=== PATIENT | male | born 1975 | race Two or more races ===

== ENCOUNTER 2024-08-09 14:15 | Emergency (ER) | payer MEDICAID, OTHER ==
[~2024-08-09] VITALS: Ht 175.3 cm; Wt 97.7 kg
[~2024-08-09 14:15] MED LIST: LISI-894 PO; NIFE-129 PO
[2024-08-09] MEDS ORDERED: AMLO5TAB66 PO (15:44)
[2024-08-09] MEDS ORDERED: LOSA1TAB40 PO (15:44)
[2024-08-09] MEDS: AmLODIPine BESYLATE 5 MG TABLET PO ONE (15:49)
[2024-08-09 16:21] LABS: BASOPHILS % (AUTO) 0.6 % (0.0-2.0); EOSINOPHILS % (AUTO) 2.4 % (1.0-6.0); HEMATOCRIT 45.3 % (41-53); HEMOGLOBIN 15.8 g/dL (13.5-17.5); LYMPHOCYTES # (AUTO) 2.8 K/uL (1.0-4.8); LYMPHOCYTES % (AUTO) 27.6 % (22.0-44.0); MEAN CORPUSCULAR HEMOGLOBIN 31.1 pg (26.0-34.0); MEAN CORPUSCULAR HGB CONC 34.9 G/dL (31.0-37.0); MEAN CORPUSCULAR VOLUME 89 fL (80-100); MONOCYTES # (AUTO) 0.8 K/uL (0.1-1.0); MONOCYTES % (AUTO) 7.4 % (2.0-9.0); NEUTROPHILS # (AUTO) 6.4 K/uL (1.8-7.7); PLATELET COUNT (AUTO) 350 K/uL (150-450); RED BLOOD CELL COUNT(AUTO) 5.08 MIL/uL (4.50-5.90); RED CELL DISTRIBUTION WIDTH 13.5 % (11.5-14.5); WHITE BLOOD COUNT (AUTO) 10.3 K/uL (4.5-11.0)
[2024-08-09 16:25] LABS: ERYTHROCYTE SEDIMENTATION RATE 1 MM/HR (0-20)
[2024-08-09 16:30] LABS: ANION GAP 7 mmol/L (8-16); CALCIUM, TOTAL 8.3 mg/dL (8.8-10.5); CARBON DIOXIDE 32 mmol/L (22-29); CHLORIDE 101 mmol/L (98-107); CREATININE 0.95 mg/dL (0.60-1.30); GLOMERULAR FILTR. RATE CALC > 60 mL/min (>60); GLUCOSE,RANDOM 96 mg/dL (70-110); POTASSIUM 3.2 mmol/L (3.5-5.1); SODIUM SERUM 140 mmol/L (136-145); UREA NITROGEN, BLOOD 10 mg/dL (7-18)
[2024-08-09 16:31] LABS: PROTHROMBIN TIME 10.9 SEC (9.4-11.6)
[2024-08-09 16:40] LABS: ALANINE AMINOTRANSFERASE 26 U/L (12-78); ALBUMIN 3.6 g/dL (3.4-5.0); ALKALINE PHOSPHATASE 97 U/L (46-116); ASPARTATE AMINOTRANSFERASE 13 U/L (15-37); BILIRUBIN,TOTAL 0.8 mg/dL (0.1-1.0)
[2024-08-09 16:41] LABS: TROPONIN I-HIGH SENSITIVITY 6 ng/L (<76)
[2024-08-09] MEDS: POTASSIUM CHLORIDE 20 MEQ ER TABLET PO ONE (17:00)
[2024-08-09 20:12] VITALS: BP 157/102; PULSE 76; RESP 16; TEMP 98; O2SAT 97
== END 2024-08-09 20:19 | disposition home or self-care (01) ==
LOC: EMS 14:15
DX: I10 Essential (primary) hypertension (principal); R51.9 Headache, unspecified; F12.90 Cannabis use, unspecified, uncomplicated; Z79.899 Other long term (current) drug therapy
CPT/HCPCS: 70450; 80048; 80076; 84484; 85025; 85610; 85651; 93005; 99285

== ENCOUNTER 2024-12-29 00:08 | Inpatient (IN) | payer OTHER ==
[~2024-12-29] VITALS: Ht 177.8 cm; Wt 101.1 kg
[~2024-12-29 00:08] MED LIST changes: +AMLO5TAB66 PO; -LISI-894 PO; +LOSA1TAB40 PO; -NIFE-129 PO
[2024-12-29 00:42] LABS: BASOPHILS % (AUTO) 0.9 % (0.0-2.0); EOSINOPHILS % (AUTO) 2.7 % (1.0-6.0); HEMATOCRIT 43.4 % (41-53); HEMOGLOBIN 14.9 g/dL (13.5-17.5); LYMPHOCYTES # (AUTO) 3.4 K/uL (1.0-4.8); LYMPHOCYTES % (AUTO) 32.6 % (22.0-44.0); MEAN CORPUSCULAR HEMOGLOBIN 30.2 pg (26.0-34.0); MEAN CORPUSCULAR HGB CONC 34.2 G/dL (31.0-37.0); MEAN CORPUSCULAR VOLUME 88 fL (80-100); MONOCYTES # (AUTO) 0.8 K/uL (0.1-1.0); MONOCYTES % (AUTO) 7.8 % (2.0-9.0); NEUTROPHILS # (AUTO) 5.7 K/uL (1.8-7.7); PLATELET COUNT (AUTO) 306 K/uL (150-450); RED BLOOD CELL COUNT(AUTO) 4.92 MIL/uL (4.50-5.90); RED CELL DISTRIBUTION WIDTH 13.3 % (11.5-14.5); WHITE BLOOD COUNT (AUTO) 10.3 K/uL (4.5-11.0)
[2024-12-29 00:53] LABS: ANION GAP 8 mmol/L (8-16); CALCIUM, TOTAL 8.4 mg/dL (8.8-10.5); CARBON DIOXIDE 28 mmol/L (22-29); CHLORIDE 99 mmol/L (98-107); CREATININE 1.08 mg/dL (0.60-1.30); GLOMERULAR FILTR. RATE CALC > 60 mL/min (>60); GLUCOSE,RANDOM 188 mg/dL (70-110); POTASSIUM 3.2 mmol/L (3.5-5.1); SODIUM SERUM 135 mmol/L (136-145); UREA NITROGEN, BLOOD 17 mg/dL (7-18)
[2024-12-29 01:02] LABS: TROPONIN I-HIGH SENSITIVITY 8 ng/L (<76)
[2024-12-29] MEDS: SODIUM CHLORIDE 0.9% 1,000 ML IV ONE (01:13)
[2024-12-29] MEDS: CloNIDine HCL 0.2 MG TABLET PO ONE (01:21)
[2024-12-29] MEDS: ACETAMINOPHEN 500 MG TABLET PO ONE (01:26)
[2024-12-29] MEDS: HydrALAZINE HCL 20 MG/ML VIAL IVP ONE ×2 (02:09→05:17)
[2024-12-29 05:31] LABS: GLUCOMETER DEV NAME(LOC) ERT.7; GLUCOSE,POINT OF CARE 183 MG/DL (70-110)
[2024-12-29] MEDS: MORPHINE SULFATE 2 MG/ML SYRINGE IVP ONE (05:38)
[2024-12-29 07:04] LABS: APPEARANCE,URINE CLEAR (CLEAR); BILIRUBIN,URINE NEGATIVE (NEGATIVE); COLOR,URINE LIGHT YELLOW (YELLOW); GLUCOSE, URINE (UA) 300-500 mg/dL (NEGATIVE); KETONES,URINE NEGATIVE (NEGATIVE); LEUKOCYTE ESTERASE ,URINE NEGATIVE (NEGATIVE); NITRATE,URINE NEGATIVE (NEGATIVE); OCCULT BLOOD,URINE NEGATIVE (NEGATIVE); PROTEIN,URINE NEGATIVE (NEGATIVE); SPECIFIC GRAVITIY, URINE 1.011 (1.003-1.030); UROBILINOGEN,URINE <=1.0 mg/dL (<=1.0)
[2024-12-29 07:10] LABS: ALCOHOL, URINE DRUG SCREEN NEGATIVE (NEGATIVE); AMPHET/METH SCREEN,URINE NEGATIVE (NEGATIVE); BARBITURATE SCREEN, URINE NEGATIVE (NEGATIVE); BENZODIAZEPINES SCREEN,URINE NEGATIVE (NEGATIVE); CANNABINOID SCREEN,URINE POSITIVE (NEGATIVE); COCAINE SCREEN,URINE NEGATIVE (NEGATIVE); METHADONE SCREEN, URINE NEGATIVE (NEGATIVE); OPIATE SCREEN,URINE NEGATIVE (NEGATIVE); PHENCYCLIDINE SCREEN,URINE NEGATIVE (NEGATIVE)
[2024-12-29 07:14] LABS: BACTERIA,URINE None Seen /HPF (None Seen); RBC,URINE None Seen /HPF (0-2); WBC,URINE None Seen /HPF (0-5)
[2024-12-29] MEDS: LABETALOL HCL 5 MG/ML 20 ML VIAL IVP PRN (07:52)
[2024-12-29 08:30] VITALS: BP 143/98; PULSE 70; RESP 20; TEMP 98.2; O2SAT 95
[2024-12-29 11:23] VITALS: BP 157/106; PULSE 69; RESP 16; TEMP 97.7; O2SAT 99
[2024-12-29] MEDS ORDERED: SPIR50TA27 PO (14:51)
[2024-12-29] MEDS ORDERED: METO25TA3 PO (14:51)
[2024-12-29 15:28] VITALS: BP 147/99; PULSE 78; RESP 20; TEMP 97.7; O2SAT 98
[2024-12-29] MEDS: AmLODIPine BESYLATE 10 MG TABLET PO ONE (16:20)
[2024-12-29] MEDS: METOPROLOL SUCCINATE 50 MG ER TABLET PO ONE (16:20)
[2024-12-29] MEDS: SPIRONOLACTONE 50 MG TABLET PO ONE (16:20)
[2024-12-29] MEDS: ACETAMINOPHEN 325 MG TABLET PO PRN (16:20)
[2024-12-29 17:00] VITALS: BP 142/92; PULSE 72; RESP 18; TEMP 97.8; O2SAT 99
[2024-12-29] MEDS ORDERED: DEXTROSE 50%-WATER 25 GM/50 ML SYRINGE IVP PRN (18:00)
[2024-12-29] MEDS: POTASSIUM CHLORIDE 20 MEQ ER TABLET PO ONE (18:36)
[2024-12-29] MEDS: hydroCHLOROthiazide 25 MG TABLET PO ONE (18:36)
[2024-12-29] MEDS: LOSARTAN POTASSIUM 50 MG TABLET PO ONE (18:36)
[2024-12-29 20:15] VITALS: BP 145/89; PULSE 74; RESP 18; TEMP 97.9; O2SAT 98
[2024-12-30 00:46] VITALS: BP 143/96; PULSE 64; RESP 18; TEMP 98.4; O2SAT 97
[2024-12-30 05:27] VITALS: BP 143/113; PULSE 72; RESP 17; TEMP 98.4; O2SAT 97
[2024-12-30 07:15] LABS: ANION GAP 10 mmol/L (8-16); CALCIUM, TOTAL 8.9 mg/dL (8.8-10.5); CARBON DIOXIDE 27 mmol/L (22-29); CHLORIDE 100 mmol/L (98-107); CREATININE 0.98 mg/dL (0.60-1.30); GLOMERULAR FILTR. RATE CALC > 60 mL/min (>60); GLUCOSE,RANDOM 157 mg/dL (70-110); POTASSIUM 3.7 mmol/L (3.5-5.1); SODIUM SERUM 137 mmol/L (136-145); UREA NITROGEN, BLOOD 13 mg/dL (7-18)
[2024-12-30 07:44] VITALS: BP 136/92; PULSE 65; RESP 19; TEMP 97.7; O2SAT 98
[2024-12-30] MEDS: AmLODIPine BESYLATE 10 MG TABLET PO SCH (08:29)
[2024-12-30] MEDS: METOPROLOL SUCCINATE 50 MG ER TABLET PO SCH (08:29)
[2024-12-30] MEDS: hydroCHLOROthiazide 25 MG TABLET PO SCH (08:29)
[2024-12-30] MEDS: LOSARTAN POTASSIUM 50 MG TABLET PO SCH (08:29)
[2024-12-30] MEDS ORDERED: SPIRONOLACTONE 50 MG TABLET PO SCH (09:00)
[2024-12-30] MEDS: SPIRONOLACTONE 50 MG TABLET PO SCH (09:59)
[2024-12-30 11:15] VITALS: BP 139/99; PULSE 74; RESP 19; TEMP 98.1; O2SAT 98
[2024-12-30] MEDS: INSULIN LISPRO 100 UNITS/ML SQ PRN (11:28)
[2024-12-30 12:01] LABS: GLUCOMETER DEV NAME(LOC) 5N.2C; GLUCOSE,POINT OF CARE 200 MG/DL (70-110)
[2024-12-30 12:01] LABS: GLUCOMETER DEV NAME(LOC) 5N.2C; GLUCOSE,POINT OF CARE 268 MG/DL (70-110)
[2024-12-30 15:46] VITALS: BP 129/98; PULSE 78; RESP 20; TEMP 98; O2SAT 98
[2024-12-30] MEDS ORDERED: METO-391 PO (16:07)
[2024-12-30] MEDS ORDERED: LOSA1TAB40 PO (16:07)
[2024-12-30] MEDS ORDERED: SPIR50TA27 PO (16:07)
[2024-12-30] MEDS ORDERED: METF-1211 PO (16:07)
[2024-12-30] MEDS ORDERED: AMLO-258 PO (16:07)
[2024-12-30 17:26] LABS: GLUCOMETER DEV NAME(LOC) 5N.2C; GLUCOSE,POINT OF CARE 115 MG/DL (70-110)
== END 2024-12-30 17:50 | disposition home or self-care (01) | DRG 199 ==
LOC: EMS 01:55 → EDH 06:40 → 5S 08:30
PROVIDERS: ADMIT Hospitalist; ATTEND Hospitalist
DX: I16.0 Hypertensive urgency (principal); E87.6 Hypokalemia; R73.9 Hyperglycemia, unspecified; F12.90 Cannabis use, unspecified, uncomplicated; Z79.899 Other long term (current) drug therapy
CPT/HCPCS: 70450; 80048; 80307; 81001; 82962; 83036; 84484; 85025; 93005; 96361; 96374; 96375; 96376; 99285; G0378; J0360; J2270; J3490; J7030; 36415-L1; 36415-TC

== ENCOUNTER 2025-03-01 09:38 | Inpatient (IN) | payer OTHER ==
[2025-03-01] VITALS (10 sets, daily range): BP systolic 104–189; BP diastolic 83–150; PULSE 58–91; RESP 18; TEMP 98.1–98.4
[~2025-03-01] VITALS: Ht 175.3 cm; Wt 104.2 kg
[~2025-03-01 09:38] MED LIST changes: +AMLO-258 PO; -AMLO5TAB66 PO; +METF-1211 PO; +METO-391 PO; +SPIR50TA27 PO
[2025-03-01] MEDS ORDERED: AMLO-258 PO (09:55)
[2025-03-01 10:23] LABS: PLATELET COUNT (AUTO) 337 K/uL (150-450); RED BLOOD CELL COUNT(AUTO) 4.91 MIL/uL (4.50-5.90); RED CELL DISTRIBUTION WIDTH 13.7 % (11.5-14.5); WHITE BLOOD COUNT (AUTO) 8.1 K/uL (4.5-11.0)
[2025-03-01] MEDS: SODIUM CHLORIDE 0.9% 1,000 ML IV ONE (10:26)
[2025-03-01 10:30] LABS: CALCIUM, TOTAL 8.2 mg/dL (8.8-10.5); CREATININE 0.98 mg/dL (0.60-1.30); GLOMERULAR FILTR. RATE CALC > 60 mL/min (>60); GLUCOSE,RANDOM 123 mg/dL (70-110); SODIUM SERUM 143 mmol/L (136-145); UREA NITROGEN, BLOOD 11 mg/dL (7-18)
[2025-03-01 10:34] LABS: ASPARTATE AMINOTRANSFERASE 22 U/L (15-37); TOTAL PROTEIN, SERUM 7.0 g/dL (6.4-8.2)
[2025-03-01 10:39] LABS: TROPONIN I-HIGH SENSITIVITY 8 ng/L (<76)
[2025-03-01 11:20] LABS: GLUCOMETER DEV NAME(LOC) ER.7; GLUCOSE,POINT OF CARE 135 MG/DL (70-110)
[2025-03-01] MEDS: POTASSIUM CHLORIDE 20 MEQ ER TABLET PO ONE (12:39)
[2025-03-01 13:07] LABS: PH,URINE DRUG SCREEN 7.0 (5.0-8.0)
[2025-03-01 13:13] LABS: ALCOHOL, URINE DRUG SCREEN NEGATIVE (NEGATIVE); AMPHET/METH SCREEN,URINE NEGATIVE (NEGATIVE); BARBITURATE SCREEN, URINE NEGATIVE (NEGATIVE); CANNABINOID SCREEN,URINE POSITIVE (NEGATIVE); COCAINE SCREEN,URINE NEGATIVE (NEGATIVE); METHADONE SCREEN, URINE NEGATIVE (NEGATIVE)
[2025-03-01] MEDS ORDERED: ONDANSETRON HCL 4 MG/2 ML VIAL IVP PRN (18:30)
[2025-03-01] MEDS ORDERED: ACETAMINOPHEN 325 MG TABLET PO PRN (18:30)
[2025-03-01] MEDS ORDERED: NITROGLYCERIN 0.4 MG SUBLINGUAL TABLET #25 SL PRN (18:30)
[2025-03-01] MEDS: ISOSORBIDE MONONITRATE 30 MG ER TABLET PO SCH (18:47)
[2025-03-01] MEDS: ATORVASTATIN CALCIUM 40 MG TABLET PO ONE (18:50)
[2025-03-01] MEDS: MORPHINE SULFATE 2 MG/ML SYRINGE IVP PRN (18:52)
[2025-03-01] MEDS: ASPIRIN 81 MG CHEWABLE TABLET PO ONE (18:53)
[2025-03-01 19:05] LABS: TROPONIN I-HIGH SENSITIVITY 10 ng/L (<76)
[2025-03-01] MEDS: DOCUSATE SODIUM 100 MG CAPSULE PO SCH (20:51)
[2025-03-01] MEDS ORDERED: DEXTROSE 50%-WATER 25 GM/50 ML SYRINGE IVP PRN (21:45)
[2025-03-01] MEDS ORDERED: INSULIN LISPRO 100 UNITS/ML SQ PRN (21:45)
[2025-03-01 22:40] LABS: TROPONIN I-HIGH SENSITIVITY 11 ng/L (<76)
[2025-03-01] MEDS: HEPARIN SODIUM,PORCINE 5,000 UNITS/ML VIAL SQ SCH (23:32)
[2025-03-02 04:01] VITALS: BP 111/82; PULSE 65; RESP 16; TEMP 98
[2025-03-02 06:31] LABS: PLATELET COUNT (AUTO) 354 K/uL (150-450); RED BLOOD CELL COUNT(AUTO) 4.75 MIL/uL (4.50-5.90); RED CELL DISTRIBUTION WIDTH 14.4 % (11.5-14.5); WHITE BLOOD COUNT (AUTO) 10.5 K/uL (4.5-11.0)
[2025-03-02 06:59] LABS: CALCIUM, TOTAL 8.2 mg/dL (8.8-10.5); CREATININE 0.95 mg/dL (0.60-1.30); GLOMERULAR FILTR. RATE CALC > 60 mL/min (>60); GLUCOSE,RANDOM 129 mg/dL (70-110); SODIUM SERUM 139 mmol/L (136-145); TROPONIN I-HIGH SENSITIVITY 8 ng/L (<76); UREA NITROGEN, BLOOD 10 mg/dL (7-18)
[2025-03-02 07:19] VITALS: BP 132/80; PULSE 70; RESP 18; TEMP 98; O2SAT 98
[2025-03-02] MEDS: ATORVASTATIN CALCIUM 40 MG TABLET PO SCH (08:57)
[2025-03-02] MEDS: ASPIRIN 81 MG CHEWABLE TABLET PO SCH (08:58)
[2025-03-02] MEDS ORDERED: POTASSIUM CHL 10 MEQ/WATER 50 ML IV PRN ×2 (09:30)
[2025-03-02] MEDS: POTASSIUM CHLORIDE 20 MEQ ER TABLET PO PRN (09:41)
[2025-03-02] MEDS ORDERED: LOSA-381 PO (10:42)
[2025-03-02 11:06] VITALS: BP 128/97; PULSE 77; RESP 18; TEMP 98; O2SAT 98
[2025-03-02 20:21] LABS: GLUCOMETER DEV NAME(LOC) 5N.2C; GLUCOSE,POINT OF CARE 141 MG/DL (70-110)
[2025-03-03 02:07] LABS: HEPATITIS C AB (EIA) Non Reactive (Non Reactive)
== END 2025-03-02 12:00 | disposition left against medical advice (07) | DRG 199 ==
LOC: EMS 09:41 → EDH 13:13 → 5N 16:30
PROVIDERS: ADMIT Internal Medicine; ATTEND Internal Medicine
DX: I16.0 Hypertensive urgency (principal); G90.89 Other disorders of autonomic nervous system; E11.9 Type 2 diabetes mellitus without complications; E87.6 Hypokalemia; I10 Essential (primary) hypertension; Z53.21 Procedure and treatment not carried out due to patient leaving prior to being seen by health care provider; I49.3 Ventricular premature depolarization; Z79.84 Long term (current) use of oral hypoglycemic drugs; Z79.899 Other long term (current) drug therapy; Z91.199 Patient's noncompliance with other medical treatment and regimen due to unspecified reason
CPT/HCPCS: 70450; 71045; 80048; 80053; 80307; 82248; 82962; 83735; 83880; 84484; 85025; 85610; 85730; 86803; 87340; 93005; 96360; 96361; 99291; J0360; J1644; J2270; 36415-L1; 36415-TC

== ENCOUNTER 2025-04-18 20:14 | Emergency (ER) | payer OTHER ==
[~2025-04-18] VITALS: Ht 175.3 cm; Wt 103.6 kg
[~2025-04-18 20:14] MED LIST changes: +LOSA-381 PO; -LOSA1TAB40 PO
[2025-04-18 20:20] VITALS: TEMP 98.1
[2025-04-18 21:22] LABS: PLATELET COUNT (AUTO) 352 K/uL (150-450); RED BLOOD CELL COUNT(AUTO) 4.89 MIL/uL (4.50-5.90); RED CELL DISTRIBUTION WIDTH 13.4 % (11.5-14.5); WHITE BLOOD COUNT (AUTO) 9.7 K/uL (4.5-11.0)
[2025-04-18 21:31] LABS: CALCIUM, TOTAL 9.0 mg/dL (8.8-10.5); CREATININE 1.16 mg/dL (0.60-1.30); GLOMERULAR FILTR. RATE CALC > 60 mL/min (>60); GLUCOSE,RANDOM 128 mg/dL (70-110); SODIUM SERUM 139 mmol/L (136-145); UREA NITROGEN, BLOOD 13 mg/dL (7-18)
[2025-04-18 21:36] LABS: ASPARTATE AMINOTRANSFERASE 17.0 U/L (15-37); TOTAL PROTEIN, SERUM 7.0 g/dL (6.4-8.2)
[2025-04-18 21:38] LABS: TROPONIN I-HIGH SENSITIVITY 7 ng/L (<76)
[2025-04-18 23:08] VITALS: BP 138/103; PULSE 90; RESP 16; O2SAT 95
[2025-04-18] MEDS: KETOROLAC TROMETHAMINE 60 MG/2 ML VIAL IM ONE (23:42)
== END 2025-04-19 00:02 | disposition home or self-care (01) ==
LOC: EMS 20:14
DX: R51.9 Headache, unspecified (principal); E11.9 Type 2 diabetes mellitus without complications; F12.90 Cannabis use, unspecified, uncomplicated; I10 Essential (primary) hypertension; Z79.899 Other long term (current) drug therapy
CPT/HCPCS: 99284; 71045; 80048; 80076; 82962; 84484; 85025; 36415; 96372; J1885